=== PATIENT | male | born 1935 | race Caucasian/White ===

== ENCOUNTER 2017-06-21 20:21 | Emergency (ER) | payer OTHER ==
[~2017-06-21] VITALS: Ht 165.1 cm; Wt 107.7 kg
[~2017-06-21 20:21] MED LIST: CHILD ASPIRIN81 M1 PO; DIGOX125 MCG PO; DOXAZOSIN MESYLA2 MG PO; DULERA 200 MCG/13 GM IH; ELIQUIS5 MG PO; FLONASE16 G1 BOTH NARES; GLIPIZIDE XL5 MG PO; LASIX20 MG PO; LEVOXYL25 MCG PO; LIPITOR40 MG PO; LORATADINE10 M2 PO; PLENDIL5 M1 PO; PROAIR HFA8.5 GM IH; PROBIOTIC1 EAC2 PO; SINGULAIR10 MG PO; SPIRIVA1 INHALATI IH; TENORMIN50 MG PO; TOPROL XL50 MG PO; VITAMIN D32000 UNI1 PO; ZESTRIL30 MG PO
[2017-06-21 22:04] LABS: COLOR BLOODY ((YELLOW)); GLUCOSE (STRIP) NEGATIVE; KETONES NEGATIVE; LEUKOCYTES SMALL; NITRITE NEGATIVE; PH, URINE 6.5 (5-8); PROTEIN (STRIP) 30; SPECIFIC GRAVITY 1.018 (1.000-1.030)
[2017-06-21 22:05] LABS: ADD MIUA? YES; BILIRUBIN SMALL; BLOOD LARGE; UROBILINOGEN 0.2 MG/DL (0.2-1.0)
[2017-06-21 22:07] LABS: HEMATOCRIT 44.5 % (38.0-50.0); MCH 26.2 PG (29.0-34.0); MCHC 31.2 G/DL (30.0-36.0); MEAN PLAT.VOLUME 9.2 uM^3 (9.0-12.4); PLATELET COUNT 244 K/uL (156-360); RBC DIS.WIDTH-CV 16.5 % (11.8-14.6); RBC DIS.WIDTH-SD 50.1 % (39-53); WHITE BLOOD COUNT 13.2 K/uL (4.1-10.2)
[2017-06-21 22:16] LABS: RED BLOOD CELLS TNTC /HPF (0-5); UCUL ADDED? YES
[2017-06-21 22:18] LABS: CHLORIDE 107 mEq/L (99-109); POTASSIUM 4.1 mEq/L (3.7-5.4); SODIUM 140 mEq/L (136-147)
[2017-06-21 22:20] LABS: GLUCOSE 109 mg/dL (70-99)
[2017-06-21 22:21] LABS: ANION GAP 9 MEQ/L (2-14)
[2017-06-21 22:22] LABS: TOTAL BILIRUBIN 0.7 mg/dL (0.0-1.0)
[2017-06-21 22:23] LABS: ALKALINE PHOSPHATASE 96 IU/L (3-129); GFR ESTIMATE (CALCULATED) 56 mL/min/
[2017-06-21 22:25] LABS: UREA NITROGEN (BUN) 20 mg/dL (9-23)
[2017-06-21 22:30] LABS: INTER. NORMALIZED RATIO 1.6; PROTHROMBIN TIME 17.9 SEC (10.2-12.9)
[2017-06-22 00:16] VITALS: BP 192/75
== END 2017-06-22 00:18 | disposition home or self-care (01) ==
LOC: EME 20:21
PROVIDERS: Physician Assistant
DX: R31.9 Hematuria, unspecified (principal); Z85.46 Personal history of malignant neoplasm of prostate; Z79.82 Long term (current) use of aspirin; Z79.01 Long term (current) use of anticoagulants; I10 Essential (primary) hypertension; J44.9 Chronic obstructive pulmonary disease, unspecified; I25.2 Old myocardial infarction; Z85.850 Personal history of malignant neoplasm of thyroid; Z85.828 Personal history of other malignant neoplasm of skin; Z86.79 Personal history of other diseases of the circulatory system; Z88.0 Allergy status to penicillin; Z87.891 Personal history of nicotine dependence
CPT/HCPCS: 74176; 80053; 81003; 85027; 85610; 87086; 99281; 99284

== ENCOUNTER 2017-08-04 12:13 | Inpatient (IN) | payer OTHER ==
[~2017-08-04] VITALS: Ht 167.6 cm; Wt 106.5 kg
[~2017-08-04 12:13] MED LIST changes: -ZESTRIL30 MG PO; +ZESTRIL40 MG PO
[2017-08-04 13:19] LABS: BASOPHIL COUNT 0.1 K/uL (0-0.1); EOSINOPHIL (%) 1.2 % (0-5); EOSINOPHIL COUNT 0.1 K/uL (0-0.3); HEMATOCRIT 43.8 % (38.0-50.0); IMMATURE GRANULOCYTE (%) 0.8 % (0.0-0.7); IMMATURE GRANULOCYTE COUNT 0.1 K/uL; INSTRUMENT ABS NEUTROPHIL CT 9.5 K/uL; LYMPHOCYTE COUNT 1.2 K/uL (1.0-2.8); MCH 26.6 PG (29.0-34.0); MCHC 30.6 G/DL (30.0-36.0); MCV 86.9 FL (86-99); MEAN PLAT.VOLUME 9.9 uM^3 (9.0-12.4); MONOCYTE (%) 8.1 % (3-12); NEUTROPHIL COUNT 9.5 K/uL (1.8-6.4); PLATELET COUNT 221 K/uL (156-360); RBC DIS.WIDTH-CV 17.2 % (11.8-14.6); RBC DIS.WIDTH-SD 54.4 % (39-53); RED BLOOD COUNT 5.04 M/uL (4.00-5.50)
[2017-08-04 13:21] LABS: BASE EXCESS 2.9 mEq/L (-3 to +3); BICARBONATE 29.8 mEq/L (22-26); CARBOXY HGB 2.7 % (0-5); COMMENTS - BLOOD GASES A+C+; DEVICE HFLNC; METHEMOGLOBIN 1.1 % (0-1.5); O2 FLOW 15 L/MIN; PCO2 54 mm Hg (35-45); PO2 75 mm Hg (80-100); SITE RR; pH 7.35 (7.35-7.45)
[2017-08-04 13:22] LABS: TOTAL RESP RATE 25 resp/min
[2017-08-04 13:28] LABS: CHLORIDE 106 mEq/L (99-109); POTASSIUM 4.4 mEq/L (3.7-5.4); SODIUM 139 mEq/L (136-147)
[2017-08-04 13:29] LABS: MAGNESIUM 1.7 mg/dL (1.3-2.7)
[2017-08-04 13:30] LABS: GLUCOSE 138 mg/dL (70-99); INTER. NORMALIZED RATIO 1.4; PROTHROMBIN TIME 16.1 SEC (10.2-12.9)
[2017-08-04 13:32] LABS: ANION GAP 7 MEQ/L (2-14)
[2017-08-04 13:33] LABS: PTT 28.8 SEC (25-37)
[2017-08-04 13:34] LABS: GFR ESTIMATE (CALCULATED) > 59 mL/min/
[2017-08-04 13:35] LABS: UREA NITROGEN (BUN) 26 mg/dL (9-23)
[2017-08-04 13:41] LABS: TROP-I INTERPRETATION NEGATIVE; TROPONIN-I 0.01 ng/mL (0.0-0.30)
[2017-08-04] MEDS ORDERED: ATORVASTATIN CA80 MG PO (17:54)
[2017-08-04] MEDS ORDERED: DOXAZOSIN MESYLA8 MG PO (17:56)
[2017-08-04] MEDS ORDERED: METOPROLOL SUCC50 MG PO (17:58)
[2017-08-04] MEDS ORDERED: LEVOTHYROXINE50 MCG PO (18:04)
[2017-08-04 21:36] VITALS: BP 179/75
[2017-08-05 00:43] VITALS: BP 149/70
[2017-08-05 03:38] VITALS: BP 162/74
[2017-08-05 05:34] LABS: HEMATOCRIT 43.6 % (38.0-50.0); MCH 26.6 PG (29.0-34.0); MCHC 30.7 G/DL (30.0-36.0); MCV 86.5 FL (86-99); MEAN PLAT.VOLUME 9.9 uM^3 (9.0-12.4); PLATELET COUNT 218 K/uL (156-360); RBC DIS.WIDTH-CV 17.1 % (11.8-14.6); RBC DIS.WIDTH-SD 53.6 % (39-53); RED BLOOD COUNT 5.04 M/uL (4.00-5.50); WHITE BLOOD COUNT 13.7 K/uL (4.1-10.2)
[2017-08-05 06:00] LABS: ANION GAP 7 MEQ/L (2-14); CHLORIDE 103 MEQ/L (99-109); GFR ESTIMATE (CALCULATED) 52 mL/min/; GLUCOSE 151 mg/dL (70-99); POTASSIUM 5.1 MEQ/L (3.7-5.4); SAMPLE HEMOLYSIS CHECK 0; SAMPLE ICTERIC CHECK 0; SAMPLE LIPEMIA CHECK 0; SODIUM 140 MEQ/L (136-147); UREA NITROGEN (BUN) 28 mg/dL (9-23)
[2017-08-05 08:08] VITALS: BP 173/74
[2017-08-05] MEDS ORDERED: ELIQUIS5 MG PO (09:18)
[2017-08-05 11:02] VITALS: BP 178/84
[2017-08-05 13:36] LABS: POINT-OF-CARE METER ID UU13113781
[2017-08-05 16:00] VITALS: BP 147/65
[2017-08-05 17:19] LABS: POINT-OF-CARE METER ID UU13113781
[2017-08-05 19:11] VITALS: BP 136/60
[2017-08-05 21:26] LABS: POINT-OF-CARE METER ID UU14174216
[2017-08-06 00:19] VITALS: BP 150/84
[2017-08-06 03:40] VITALS: BP 104/70
[2017-08-06 05:31] LABS: EOSINOPHIL (%) 0 % (0-5); HEMATOCRIT 43.3 % (38.0-50.0); IMMATURE GRANULOCYTE (%) 0.6 % (0.0-0.7); IMMATURE GRANULOCYTE COUNT 0.1 K/uL; INSTRUMENT ABS NEUTROPHIL CT 16.4 K/uL; LYMPHOCYTE COUNT 0.4 K/uL (1.0-2.8); MCHC 30.3 G/DL (30.0-36.0); MCV 86.1 FL (86-99); MEAN PLAT.VOLUME 9.8 uM^3 (9.0-12.4); MONOCYTE (%) 2.5 % (3-12); MONOCYTE COUNT 0.4 K/uL (0-0.8); NEUTROPHIL (%) 94.8 % (45-76); NEUTROPHIL COUNT 16.4 K/uL (1.8-6.4); PLATELET COUNT 239 K/uL (156-360); RBC DIS.WIDTH-CV 17.2 % (11.8-14.6); RBC DIS.WIDTH-SD 53.5 % (39-53); RED BLOOD COUNT 5.03 M/uL (4.00-5.50); WHITE BLOOD COUNT 17.3 K/uL (4.1-10.2)
[2017-08-06 05:52] LABS: ANION GAP 9 MEQ/L (2-14); CHLORIDE 103 MEQ/L (99-109); GFR ESTIMATE (CALCULATED) 56 mL/min/; GLUCOSE 162 mg/dL (70-99); SAMPLE HEMOLYSIS CHECK 0; SAMPLE ICTERIC CHECK 0; SAMPLE LIPEMIA CHECK 0; SODIUM 139 MEQ/L (136-147); UREA NITROGEN (BUN) 37 mg/dL (9-23)
[2017-08-06 07:55] LABS: POINT-OF-CARE METER ID UU13113781; POINT-OF-CARE USER ID ENVKC36
[2017-08-06 08:10] VITALS: BP 128/63
[2017-08-06 12:12] LABS: POINT-OF-CARE METER ID UU13113781; POINT-OF-CARE USER ID ENVKC36
[2017-08-06 12:56] LABS: TYPE OF FLUID PLEURAL
[2017-08-06 13:17] VITALS: BP 123/78
[2017-08-06 13:30] LABS: BODY FLUID LDH 191 IU/L; BODY FLUID PROTEIN 3.2 G/DL
[2017-08-06 14:34] LABS: BODY FLUID RBC'S 109250 /MM^3 (0-100); BODY FLUID WBC'S 100 /MM^3 (0-500); RED CELL AREA COUNTED 0.4; RED CELL DILUTION 10; WBC AREA COUNTED 8; WBC DILUTION 10; WHITE CELL RAW COUNT 8
[2017-08-06 14:39] LABS: BODY FLUID EOSINOPHILS 3 % (0-25); MONO RAW COUNT 36; MONONUCLEAR WBC'S 36 %; POLY RAW COUNT 61; POLYNUCLEAR WBC'S 61 % (0-25)
[2017-08-06 16:49] LABS: POINT-OF-CARE METER ID UU13113781; POINT-OF-CARE USER ID ENVKC36
[2017-08-06 19:46] VITALS: BP 117/62
[2017-08-06 21:08] LABS: POINT-OF-CARE METER ID UU14314088
[2017-08-06 23:20] VITALS: BP 110/70
[2017-08-07 05:33] VITALS: BP 152/72
[2017-08-07 06:07] LABS: EOSINOPHIL (%) 0 % (0-5); HEMATOCRIT 42.4 % (38.0-50.0); IMMATURE GRANULOCYTE (%) 0.7 % (0.0-0.7); IMMATURE GRANULOCYTE COUNT 0.1 K/uL; INSTRUMENT ABS NEUTROPHIL CT 18.2 K/uL; LYMPHOCYTE COUNT 0.5 K/uL (1.0-2.8); MCH 27.1 PG (29.0-34.0); MCHC 31.6 G/DL (30.0-36.0); MCV 85.8 FL (86-99); MEAN PLAT.VOLUME 10.4 uM^3 (9.0-12.4); MONOCYTE (%) 4.5 % (3-12); MONOCYTE COUNT 0.9 K/uL (0-0.8); NEUTROPHIL (%) 92.2 % (45-76); NEUTROPHIL COUNT 18.2 K/uL (1.8-6.4); PLATELET COUNT 238 K/uL (156-360); RBC DIS.WIDTH-CV 17.3 % (11.8-14.6); RBC DIS.WIDTH-SD 53.5 % (39-53); RED BLOOD COUNT 4.94 M/uL (4.00-5.50); WHITE BLOOD COUNT 19.8 K/uL (4.1-10.2)
[2017-08-07 06:37] LABS: ANION GAP 7 MEQ/L (2-14); CHLORIDE 103 MEQ/L (99-109); GFR ESTIMATE (CALCULATED) 41 mL/min/; GLUCOSE 166 mg/dL (70-99); POTASSIUM 5.2 MEQ/L (3.7-5.4); SAMPLE HEMOLYSIS CHECK 0; SAMPLE ICTERIC CHECK 0; SAMPLE LIPEMIA CHECK 0; SODIUM 139 MEQ/L (136-147); UREA NITROGEN (BUN) 46 mg/dL (9-23)
[2017-08-07 07:55] VITALS: BP 125/75
[2017-08-07 08:01] LABS: POINT-OF-CARE METER ID UU13113698
[2017-08-07 09:55] LABS: ALKALINE PHOSPHATASE 74 IU/L (3-129); DIRECT BILIRUBIN 0.2 mg/dL (0.0-0.3); LACTATE DEHYDROGENASE 186 IU/L (20-246); TOTAL BILIRUBIN 0.6 MG/DL (0.0-1.0)
[2017-08-07 11:33] LABS: POINT-OF-CARE METER ID UU13113698
[2017-08-07 12:20] VITALS: BP 143/67
[2017-08-07 16:42] LABS: POINT-OF-CARE METER ID UU14174216
[2017-08-07 17:58] VITALS: BP 134/72
[2017-08-07 19:15] VITALS: BP 126/61
[2017-08-07 21:22] LABS: POINT-OF-CARE METER ID UU13113781
[2017-08-08 00:19] VITALS: BP 125/79
[2017-08-08 04:49] VITALS: BP 148/77
[2017-08-08 06:11] LABS: EOSINOPHIL (%) 0 % (0-5); HEMATOCRIT 47.6 % (38.0-50.0); IMMATURE GRANULOCYTE COUNT 0.2 K/uL; INSTRUMENT ABS NEUTROPHIL CT 17.3 K/uL; LYMPHOCYTE COUNT 0.5 K/uL (1.0-2.8); MCH 26.5 PG (29.0-34.0); MCHC 30.9 G/DL (30.0-36.0); MCV 85.9 FL (86-99); MEAN PLAT.VOLUME 10.4 uM^3 (9.0-12.4); MONOCYTE (%) 4.2 % (3-12); MONOCYTE COUNT 0.8 K/uL (0-0.8); NEUTROPHIL (%) 92.3 % (45-76); NEUTROPHIL COUNT 17.3 K/uL (1.8-6.4); PLATELET COUNT 240 K/uL (156-360); RBC DIS.WIDTH-CV 17.9 % (11.8-14.6); RED BLOOD COUNT 5.54 M/uL (4.00-5.50); WHITE BLOOD COUNT 18.7 K/uL (4.1-10.2)
[2017-08-08 06:35] LABS: ANION GAP 10 MEQ/L (2-14); CHLORIDE 104 MEQ/L (99-109); GFR ESTIMATE (CALCULATED) 56 mL/min/ (58.99-99999); GLUCOSE 139 mg/dL (70-99); POTASSIUM 5.1 MEQ/L (3.7-5.4); SAMPLE HEMOLYSIS CHECK 0; SAMPLE ICTERIC CHECK 0; SAMPLE LIPEMIA CHECK 0; SODIUM 139 MEQ/L (136-147); UREA NITROGEN (BUN) 47 mg/dL (9-23)
[2017-08-08 07:17] VITALS: BP 132/80
[2017-08-08 08:25] LABS: POINT-OF-CARE METER ID UU13113781; POINT-OF-CARE USER ID NUTSLF44
[2017-08-08 11:08] VITALS: BP 122/64
[2017-08-08 11:59] LABS: POINT-OF-CARE METER ID UU13113698; POINT-OF-CARE USER ID NUTSLF44
[2017-08-08 15:40] VITALS: BP 137/87
[2017-08-08 16:56] LABS: POINT-OF-CARE METER ID UU13113781; POINT-OF-CARE USER ID NUTSLF44
[2017-08-08 20:57] VITALS: BP 142/79
[2017-08-08 20:58] LABS: POINT-OF-CARE METER ID UU14314088; POINT-OF-CARE USER ID ENVMNS
[2017-08-09 02:04] VITALS: BP 129/67
[2017-08-09 05:27] VITALS: BP 142/84
[2017-08-09 05:49] LABS: EOSINOPHIL (%) 0 % (0-5); HEMATOCRIT 44.8 % (38.0-50.0); IMMATURE GRANULOCYTE (%) 0.9 % (0.0-0.7); IMMATURE GRANULOCYTE COUNT 0.2 K/uL; INSTRUMENT ABS NEUTROPHIL CT 16.1 K/uL; LYMPHOCYTE COUNT 0.3 K/uL (1.0-2.8); MCH 26.8 PG (29.0-34.0); MCHC 31.3 G/DL (30.0-36.0); MCV 85.7 FL (86-99); MEAN PLAT.VOLUME 10.5 uM^3 (9.0-12.4); MONOCYTE (%) 4.8 % (3-12); MONOCYTE COUNT 0.8 K/uL (0-0.8); NEUTROPHIL (%) 92.3 % (45-76); NEUTROPHIL COUNT 16.1 K/uL (1.8-6.4); PLATELET COUNT 215 K/uL (156-360); RBC DIS.WIDTH-CV 17.5 % (11.8-14.6); RBC DIS.WIDTH-SD 54.4 % (39-53); RED BLOOD COUNT 5.23 M/uL (4.00-5.50); WHITE BLOOD COUNT 17.5 K/uL (4.1-10.2)
[2017-08-09 06:12] LABS: ANION GAP 6 MEQ/L (2-14); CHLORIDE 102 MEQ/L (99-109); GFR ESTIMATE (CALCULATED) 52 mL/min/ (58.99-99999); GLUCOSE 138 mg/dL (70-99); POTASSIUM 5.2 MEQ/L (3.7-5.4); SAMPLE HEMOLYSIS CHECK 1; SAMPLE ICTERIC CHECK 0; SAMPLE LIPEMIA CHECK 0; SODIUM 136 MEQ/L (136-147); UREA NITROGEN (BUN) 50 mg/dL (9-23)
[2017-08-09 07:35] VITALS: BP 127/61
[2017-08-09 08:31] LABS: POINT-OF-CARE METER ID UU14174216; POINT-OF-CARE USER ID NUTSLF44
[2017-08-09 12:59] VITALS: BP 133/72
[2017-08-09 12:59] LABS: POINT-OF-CARE METER ID UU14314088; POINT-OF-CARE USER ID NUTSLF44
[2017-08-09 16:42] LABS: POINT-OF-CARE METER ID UU14314088; POINT-OF-CARE USER ID NUTSLF44
[2017-08-09 16:47] VITALS: BP 120/59
[2017-08-09 21:30] LABS: POINT-OF-CARE METER ID UU14314088
[2017-08-09 23:24] VITALS: BP 125/62
[2017-08-10 03:39] VITALS: BP 142/70
[2017-08-10 05:56] LABS: EOSINOPHIL (%) 0 % (0-5); HEMATOCRIT 46.7 % (38.0-50.0); IMMATURE GRANULOCYTE (%) 0.8 % (0.0-0.7); IMMATURE GRANULOCYTE COUNT 0.1 K/uL; LYMPHOCYTE COUNT 0.3 K/uL (1.0-2.8); MCH 25.9 PG (29.0-34.0); MCHC 30.6 G/DL (30.0-36.0); MCV 84.4 FL (86-99); MEAN PLAT.VOLUME 10.7 uM^3 (9.0-12.4); MONOCYTE (%) 5.1 % (3-12); MONOCYTE COUNT 0.8 K/uL (0-0.8); PLATELET COUNT 229 K/uL (156-360); RBC DIS.WIDTH-CV 17.5 % (11.8-14.6); RBC DIS.WIDTH-SD 53.8 % (39-53); RED BLOOD COUNT 5.53 M/uL (4.00-5.50); WHITE BLOOD COUNT 16.3 K/uL (4.1-10.2)
[2017-08-10 06:21] LABS: ANION GAP 9 MEQ/L (2-14); CHLORIDE 103 MEQ/L (99-109); GFR ESTIMATE (CALCULATED) 52 mL/min/ (58.99-99999); GLUCOSE 155 mg/dL (70-99); POTASSIUM 5.4 MEQ/L (3.7-5.4); SAMPLE HEMOLYSIS CHECK 0; SAMPLE ICTERIC CHECK 0; SAMPLE LIPEMIA CHECK 0; SODIUM 138 MEQ/L (136-147); UREA NITROGEN (BUN) 56 mg/dL (9-23)
[2017-08-10 08:04] LABS: POINT-OF-CARE METER ID UU14314088; POINT-OF-CARE USER ID NUTSLF44
[2017-08-10 09:29] VITALS: BP 119/63
[2017-08-10 11:28] LABS: POINT-OF-CARE METER ID UU14174216; POINT-OF-CARE USER ID NUTSLF44
[2017-08-10 12:28] VITALS: BP 142/84
[2017-08-10 16:31] LABS: POINT-OF-CARE METER ID UU14314088; POINT-OF-CARE USER ID NUTSLF44
[2017-08-10 17:27] VITALS: BP 138/76
[2017-08-10 19:51] VITALS: BP 128/73
[2017-08-10 21:19] LABS: POINT-OF-CARE METER ID UU14174216
[2017-08-10 23:55] VITALS: BP 142/68
[2017-08-11 04:09] VITALS: BP 113/59
[2017-08-11 06:12] LABS: EOSINOPHIL (%) 0 % (0-5); HEMATOCRIT 45.7 % (38.0-50.0); IMMATURE GRANULOCYTE (%) 0.8 % (0.0-0.7); IMMATURE GRANULOCYTE COUNT 0.1 K/uL; INSTRUMENT ABS NEUTROPHIL CT 14.7 K/uL; LYMPHOCYTE COUNT 0.4 K/uL (1.0-2.8); MCH 26.9 PG (29.0-34.0); MCHC 31.7 G/DL (30.0-36.0); MCV 84.8 FL (86-99); MEAN PLAT.VOLUME 10.5 uM^3 (9.0-12.4); MONOCYTE (%) 4.3 % (3-12); MONOCYTE COUNT 0.7 K/uL (0-0.8); NEUTROPHIL (%) 92.5 % (45-76); NEUTROPHIL COUNT 14.7 K/uL (1.8-6.4); PLATELET COUNT 208 K/uL (156-360); RBC DIS.WIDTH-CV 17.4 % (11.8-14.6); RBC DIS.WIDTH-SD 53.2 % (39-53); RED BLOOD COUNT 5.39 M/uL (4.00-5.50); WHITE BLOOD COUNT 15.9 K/uL (4.1-10.2)
[2017-08-11 06:42] LABS: ANION GAP 7 MEQ/L (2-14); CHLORIDE 102 MEQ/L (99-109); GFR ESTIMATE (CALCULATED) 52 mL/min/ (58.99-99999); GLUCOSE 158 mg/dL (70-99); POTASSIUM 5.7 MEQ/L (3.7-5.4); SAMPLE HEMOLYSIS CHECK 2; SAMPLE ICTERIC CHECK 0; SAMPLE LIPEMIA CHECK 0; SODIUM 136 MEQ/L (136-147); UREA NITROGEN (BUN) 61 mg/dL (9-23)
[2017-08-11 08:00] VITALS: BP 127/64
[2017-08-11 08:00] LABS: POTASSIUM 5.4 MEQ/L (3.7-5.4)
[2017-08-11 08:19] LABS: POINT-OF-CARE METER ID UU13113698
[2017-08-11 11:31] LABS: POINT-OF-CARE METER ID UU14314088
[2017-08-11 13:25] VITALS: BP 138/72
[2017-08-11 16:10] LABS: POINT-OF-CARE METER ID UU14314088
[2017-08-11 17:38] VITALS: BP 108/57
[2017-08-11 18:25] LABS: POINT-OF-CARE METER ID UU13113675
[2017-08-11 20:19] VITALS: BP 117/70
[2017-08-11 21:48] LABS: POINT-OF-CARE METER ID UU14314088
[2017-08-12] VITALS (7 sets, daily range): BP systolic 96–122; BP diastolic 52–76
[2017-08-12 05:27] LABS: EOSINOPHIL (%) 0.1 % (0-5); HEMATOCRIT 46.8 % (38.0-50.0); IMMATURE GRANULOCYTE (%) 1.1 % (0.0-0.7); IMMATURE GRANULOCYTE COUNT 0.2 K/uL; INSTRUMENT ABS NEUTROPHIL CT 17.2 K/uL; LYMPHOCYTE COUNT 0.6 K/uL (1.0-2.8); MCH 26.4 PG (29.0-34.0); MCHC 31.4 G/DL (30.0-36.0); MCV 84.2 FL (86-99); MEAN PLAT.VOLUME 10.2 uM^3 (9.0-12.4); MONOCYTE (%) 8.6 % (3-12); MONOCYTE COUNT 1.7 K/uL (0-0.8); NEUTROPHIL (%) 86.9 % (45-76); NEUTROPHIL COUNT 17.2 K/uL (1.8-6.4); PLATELET COUNT 204 K/uL (156-360); RBC DIS.WIDTH-CV 17.5 % (11.8-14.6); RBC DIS.WIDTH-SD 53.2 % (39-53); RED BLOOD COUNT 5.56 M/uL (4.00-5.50); WHITE BLOOD COUNT 19.8 K/uL (4.1-10.2)
[2017-08-12 05:38] LABS: CHLORIDE 103 mEq/L (99-109); POTASSIUM 5.5 mEq/L (3.7-5.4); SODIUM 137 mEq/L (136-147)
[2017-08-12 05:41] LABS: ANION GAP 8 MEQ/L (2-14)
[2017-08-12 05:43] LABS: GLUCOSE 108 mg/dL (70-99)
[2017-08-12 05:44] LABS: GFR ESTIMATE (CALCULATED) 52 mL/min/ (58.99-99999)
[2017-08-12 05:45] LABS: UREA NITROGEN (BUN) 62 mg/dL (9-23)
[2017-08-12 08:08] LABS: POINT-OF-CARE METER ID UU14174216
[2017-08-12 12:10] LABS: POINT-OF-CARE METER ID UU13113781
[2017-08-12 17:26] LABS: POINT-OF-CARE METER ID UU13113781
[2017-08-12 20:57] LABS: POINT-OF-CARE METER ID UU14174216
[2017-08-13 05:31] LABS: EOSINOPHIL (%) 0.3 % (0-5); EOSINOPHIL COUNT 0.1 K/uL (0-0.3); HEMATOCRIT 44.3 % (38.0-50.0); IMMATURE GRANULOCYTE (%) 1.4 % (0.0-0.7); IMMATURE GRANULOCYTE COUNT 0.2 K/uL; INSTRUMENT ABS NEUTROPHIL CT 13.8 K/uL; LYMPHOCYTE COUNT 0.7 K/uL (1.0-2.8); MCH 26.6 PG (29.0-34.0); MCHC 31.6 G/DL (30.0-36.0); MCV 84.1 FL (86-99); MEAN PLAT.VOLUME 10.6 uM^3 (9.0-12.4); MONOCYTE (%) 8.1 % (3-12); MONOCYTE COUNT 1.3 K/uL (0-0.8); NEUTROPHIL (%) 85.8 % (45-76); NEUTROPHIL COUNT 13.8 K/uL (1.8-6.4); PLATELET COUNT 166 K/uL (156-360); RBC DIS.WIDTH-CV 17.2 % (11.8-14.6); RBC DIS.WIDTH-SD 52.8 % (39-53); RED BLOOD COUNT 5.27 M/uL (4.00-5.50)
[2017-08-13 05:46] VITALS: BP 109/59
[2017-08-13 05:51] LABS: ANION GAP 7 MEQ/L (2-14); CHLORIDE 103 MEQ/L (99-109); GFR ESTIMATE (CALCULATED) 52 mL/min/ (58.99-99999); GLUCOSE 85 mg/dL (70-99); POTASSIUM 4.9 MEQ/L (3.7-5.4); SAMPLE HEMOLYSIS CHECK 0; SAMPLE ICTERIC CHECK 0; SAMPLE LIPEMIA CHECK 0; SODIUM 134 MEQ/L (136-147); UREA NITROGEN (BUN) 61 mg/dL (9-23)
[2017-08-13 07:36] LABS: POINT-OF-CARE METER ID UU14314088
[2017-08-13 09:00] VITALS: BP 87/55
[2017-08-13 11:44] LABS: POINT-OF-CARE METER ID UU13113698
[2017-08-13 13:00] VITALS: BP 100/56
[2017-08-13 16:00] VITALS: BP 119/75
[2017-08-13 17:10] LABS: POINT-OF-CARE METER ID UU14314088
[2017-08-13 19:20] VITALS: BP 109/64
[2017-08-13 21:15] LABS: POINT-OF-CARE METER ID UU13113698
[2017-08-14 00:18] VITALS: BP 131/77
[2017-08-14 03:48] VITALS: BP 125/87
[2017-08-14 07:41] LABS: POINT-OF-CARE METER ID UU14314088
[2017-08-14 07:50] VITALS: BP 97/62
[2017-08-14 09:10] LABS: BASOPHIL COUNT 0.1 K/uL (0-0.1); EOSINOPHIL (%) 0.7 % (0-5); EOSINOPHIL COUNT 0.1 K/uL (0-0.3); HEMATOCRIT 47.5 % (38.0-50.0); IMMATURE GRANULOCYTE (%) 1.6 % (0.0-0.7); IMMATURE GRANULOCYTE COUNT 0.3 K/uL; INSTRUMENT ABS NEUTROPHIL CT 15.8 K/uL; LYMPHOCYTE COUNT 0.8 K/uL (1.0-2.8); MCH 26.3 PG (29.0-34.0); MCHC 31.8 G/DL (30.0-36.0); MCV 82.8 FL (86-99); MEAN PLAT.VOLUME 10.8 uM^3 (9.0-12.4); MONOCYTE (%) 7.2 % (3-12); MONOCYTE COUNT 1.3 K/uL (0-0.8); NEUTROPHIL (%) 85.7 % (45-76); NEUTROPHIL COUNT 15.8 K/uL (1.8-6.4); PLATELET COUNT 207 K/uL (156-360); RBC DIS.WIDTH-CV 17.3 % (11.8-14.6); RBC DIS.WIDTH-SD 51.6 % (39-53); RED BLOOD COUNT 5.74 M/uL (4.00-5.50); WHITE BLOOD COUNT 18.4 K/uL (4.1-10.2)
[2017-08-14 09:29] LABS: ANION GAP 5 MEQ/L (2-14); CHLORIDE 102 MEQ/L (99-109); POTASSIUM 5.4 MEQ/L (3.7-5.4); SAMPLE HEMOLYSIS CHECK 2; SAMPLE ICTERIC CHECK 0; SAMPLE LIPEMIA CHECK 0; SODIUM 134 MEQ/L (136-147)
[2017-08-14 09:35] LABS: GFR ESTIMATE (CALCULATED) 56 mL/min/ (58.99-99999); GLUCOSE 94 mg/dL (70-99); UREA NITROGEN (BUN) 58 mg/dL (9-23)
[2017-08-14 11:59] LABS: POINT-OF-CARE METER ID UU13113698
[2017-08-14 13:46] VITALS: BP 114/66
[2017-08-14 15:14] VITALS: BP 106/57
[2017-08-14 16:51] LABS: POINT-OF-CARE METER ID UU14314088
[2017-08-14 19:30] VITALS: BP 112/65
[2017-08-14 20:56] LABS: POINT-OF-CARE METER ID UU13113698
[2017-08-15 00:05] VITALS: BP 107/59
[2017-08-15 04:17] VITALS: BP 110/62
[2017-08-15 06:49] VITALS: BP 104/58
[2017-08-15 07:54] LABS: POINT-OF-CARE METER ID UU13113781
[2017-08-15 11:26] LABS: POINT-OF-CARE METER ID UU13113781
[2017-08-15 16:16] VITALS: BP 121/64
[2017-08-15 16:24] LABS: POINT-OF-CARE METER ID UU14174216
[2017-08-15 19:20] VITALS: BP 115/59
[2017-08-15 20:55] LABS: POINT-OF-CARE METER ID UU14174216
[2017-08-15 23:42] VITALS: BP 107/56; BP 17/56
[2017-08-16 03:13] VITALS: BP 101/57
[2017-08-16 06:50] LABS: HEMATOCRIT 44.6 % (38.0-50.0); MCH 26.7 PG (29.0-34.0); MCHC 31.6 G/DL (30.0-36.0); MCV 84.3 FL (86-99); MEAN PLAT.VOLUME 10.7 uM^3 (9.0-12.4); PLATELET COUNT 175 K/uL (156-360); RBC DIS.WIDTH-CV 17.5 % (11.8-14.6); RBC DIS.WIDTH-SD 53.1 % (39-53); RED BLOOD COUNT 5.29 M/uL (4.00-5.50); WHITE BLOOD COUNT 16.6 K/uL (4.1-10.2)
[2017-08-16 07:15] LABS: ANION GAP 6 MEQ/L (2-14); CHLORIDE 103 MEQ/L (99-109); GFR ESTIMATE (CALCULATED) 52 mL/min/ (58.99-99999); GLUCOSE 86 mg/dL (70-99); POTASSIUM 4.9 MEQ/L (3.7-5.4); SAMPLE HEMOLYSIS CHECK 0; SAMPLE ICTERIC CHECK 0; SAMPLE LIPEMIA CHECK 0; SODIUM 135 MEQ/L (136-147); UREA NITROGEN (BUN) 48 mg/dL (9-23)
[2017-08-16 07:34] LABS: POINT-OF-CARE METER ID UU13113698
[2017-08-16 08:29] VITALS: BP 101/56
[2017-08-16 11:45] LABS: POINT-OF-CARE METER ID UU14174216
[2017-08-16 11:55] VITALS: BP 100/66
[2017-08-16 16:22] LABS: POINT-OF-CARE METER ID UU14174216
[2017-08-16 17:39] VITALS: BP 128/70
[2017-08-16 19:30] VITALS: BP 111/62
[2017-08-16 21:14] LABS: POINT-OF-CARE METER ID UU14314088
[2017-08-17 00:10] VITALS: BP 119/56
[2017-08-17 03:30] VITALS: BP 97/53
[2017-08-17 05:45] LABS: HEMATOCRIT 44.7 % (38.0-50.0); MCH 26.2 PG (29.0-34.0); MEAN PLAT.VOLUME 10.1 uM^3 (9.0-12.4); PLATELET COUNT 176 K/uL (156-360); RBC DIS.WIDTH-CV 17.2 % (11.8-14.6); RED BLOOD COUNT 5.45 M/uL (4.00-5.50); WHITE BLOOD COUNT 17.5 K/uL (4.1-10.2)
[2017-08-17 06:09] LABS: ANION GAP 8 MEQ/L (2-14); CHLORIDE 102 MEQ/L (99-109); GFR ESTIMATE (CALCULATED) 56 mL/min/ (58.99-99999); GLUCOSE 96 mg/dL (70-99); SAMPLE HEMOLYSIS CHECK 2; SAMPLE ICTERIC CHECK 0; SAMPLE LIPEMIA CHECK 0; SODIUM 133 MEQ/L (136-147); UREA NITROGEN (BUN) 50 mg/dL (9-23)
[2017-08-17 06:10] LABS: POTASSIUM ND MEQ/L (3.7-5.4)
[2017-08-17 07:56] LABS: POINT-OF-CARE METER ID UU13113698; POINT-OF-CARE USER ID ENVKC36
[2017-08-17 09:18] VITALS: BP 92/50
[2017-08-17 10:12] LABS: POTASSIUM 6.2 MEQ/L (3.7-5.4)
[2017-08-17 12:11] LABS: POINT-OF-CARE METER ID UU14314088; POINT-OF-CARE USER ID ENVKC36
[2017-08-17 15:15] VITALS: BP 110/66
[2017-08-17 16:39] LABS: POINT-OF-CARE METER ID UU14314088; POINT-OF-CARE USER ID ENVKC36
[2017-08-17 17:23] LABS: ANION GAP 7 MEQ/L (2-14); CHLORIDE 100 MEQ/L (99-109); GFR ESTIMATE (CALCULATED) 56 mL/min/ (58.99-99999); SAMPLE HEMOLYSIS CHECK 0; SAMPLE ICTERIC CHECK 0; SAMPLE LIPEMIA CHECK 0; SODIUM 131 MEQ/L (136-147); UREA NITROGEN (BUN) 49 mg/dL (9-23)
[2017-08-17 17:24] LABS: GLUCOSE 171 mg/dL (70-99)
[2017-08-17 18:45] VITALS: BP 122/55
[2017-08-17 21:18] LABS: POINT-OF-CARE METER ID UU14174216
[2017-08-18 00:31] VITALS: BP 107/64
[2017-08-18 04:22] VITALS: BP 106/60
[2017-08-18 05:56] LABS: HEMATOCRIT 43.9 % (38.0-50.0); MCHC 31.7 G/DL (30.0-36.0); MCV 82.1 FL (86-99); MEAN PLAT.VOLUME 10.4 uM^3 (9.0-12.4); PLATELET COUNT 178 K/uL (156-360); RBC DIS.WIDTH-CV 17.2 % (11.8-14.6); RBC DIS.WIDTH-SD 51.1 % (39-53); RED BLOOD COUNT 5.35 M/uL (4.00-5.50); WHITE BLOOD COUNT 19.1 K/uL (4.1-10.2)
[2017-08-18 06:27] LABS: ANION GAP 7 MEQ/L (2-14); CHLORIDE 102 MEQ/L (99-109); GFR ESTIMATE (CALCULATED) > 59 mL/min/ (58.99-99999); GLUCOSE 90 mg/dL (70-99); POTASSIUM 4.6 MEQ/L (3.7-5.4); SAMPLE HEMOLYSIS CHECK 0; SAMPLE ICTERIC CHECK 0; SAMPLE LIPEMIA CHECK 0; SODIUM 135 MEQ/L (136-147); UREA NITROGEN (BUN) 47 mg/dL (9-23)
[2017-08-18 08:00] VITALS: BP 108/67
[2017-08-18 08:00] LABS: POINT-OF-CARE METER ID UU13113781
[2017-08-18 11:31] LABS: POINT-OF-CARE METER ID UU13113781
[2017-08-18 11:58] VITALS: BP 112/71
[2017-08-18] MEDS ORDERED: PREDNISONE10 MG PO (12:04)
[2017-08-18] MEDS ORDERED: FLORASTOR250 MG PO (12:04)
[2017-08-18] MEDS ORDERED: LEVOFLOXACIN750 MG PO (12:04)
== END 2017-08-18 17:03 | DRG 166 ==
LOC: EME 12:13 → 4EAST 16:30 → EDOF 16:30 → ENRESERV 16:40 → 4EAST 20:17
PROVIDERS: Emergency Medicine; Hospitalist; Internal Medicine; Internal Medicine Pulmonary Disease; Physician Assistant Medical
DX: J96.21 Acute and chronic respiratory failure with hypoxia (principal); J18.9 Pneumonia, unspecified organism; J44.0 Chronic obstructive pulmonary disease with (acute) lower respiratory infection; J44.1 Chronic obstructive pulmonary disease with (acute) exacerbation; J91.8 Pleural effusion in other conditions classified elsewhere; R04.2 Hemoptysis; E87.5 Hyperkalemia; I48.0 Paroxysmal atrial fibrillation; E11.22 Type 2 diabetes mellitus with diabetic chronic kidney disease; I12.9 Hypertensive chronic kidney disease with stage 1 through stage 4 chronic kidney disease, or unspecified chronic kidney disease; N18.9 Chronic kidney disease, unspecified; J98.11 Atelectasis; I45.10 Unspecified right bundle-branch block; I25.10 Atherosclerotic heart disease of native coronary artery without angina pectoris; E78.5 Hyperlipidemia, unspecified; E03.9 Hypothyroidism, unspecified; N40.0 Benign prostatic hyperplasia without lower urinary tract symptoms; E66.9 Obesity, unspecified; Z68.38 Body mass index [BMI] 38.0-38.9, adult; I25.2 Old myocardial infarction; Z99.81 Dependence on supplemental oxygen; Z91.19 Patient's noncompliance with other medical treatment and regimen; Z87.891 Personal history of nicotine dependence; Z86.718 Personal history of other venous thrombosis and embolism; Z86.73 Personal history of transient ischemic attack (TIA), and cerebral infarction without residual deficits; Z85.46 Personal history of malignant neoplasm of prostate; Z85.828 Personal history of other malignant neoplasm of skin; Z86.79 Personal history of other diseases of the circulatory system; Z79.82 Long term (current) use of aspirin; Z79.84 Long term (current) use of oral hypoglycemic drugs; Z79.01 Long term (current) use of anticoagulants
CPT/HCPCS: 36600; 71010; 71020; 71275; 75989; 76942; 80048; 80048 91; 80076; 82803; 82945; 82948; 83605; 83615; 83615 91; 83735; 83880; 84157; 84484; 84999; 85025; 85027; 85610; 85730; 87040; 87070; 87075; 87116; 87205; 87206; 87278; 87449; 87502; 88108; 88305; 89051; 93005; 93306; 94010; 94640; 94640 76; 94667; 94668; 94760; 94799; 97530 GP; 99202; 99281; 99285; C1769; J1815; J1956; J2920; J2930; J7030; J7512; J7644